=== PATIENT | male | born 1960 | race Caucasian/White ===

== ENCOUNTER 2018-02-27 09:21 | Outpatient (CLI) | payer MEDICARE | END 2018-02-27 09:22 | LOC: POD 09:21 | PROVIDERS: ATTEND Podiatrist Public Medicine | DX: B35.1 Tinea unguium (principal); M79.675 Pain in left toe(s); M79.674 Pain in right toe(s); L84 Corns and callosities; M79.672 Pain in left foot | CPT/HCPCS: 11721; G0463 ==